=== PATIENT | female | born 1935 | race Caucasian/White ===

== ENCOUNTER 2019-05-08 19:35 | Inpatient (IN) | payer MEDICARE, OTHER ==
[~2019-05-08] VITALS: Ht 167.6 cm; Wt 69.0 kg
[2019-05-08] MEDS ORDERED: MAPAP500 MG/15 PO (19:45)
[2019-05-08 20:07] LABS: BASOPHILS % (AUTO) 0.9 % (0.0-2.0); HEMATOCRIT 41.2 % (37.0-47.0); HEMOGLOBIN 13.9 G/DL (12.0-16.0); LYMPHOCYTES % (AUTO) 24.6 % (20.0-45.0); MEAN CORPUSCULAR VOLUME 86 FL (80-99); MONOCYTES % (AUTO) 9.9 % (1.0-10.0); NEUTROPHILS % (AUTO) 63.6 % (45.0-75.0); PLATELET COUNT 263 K/UL (150-450); RED BLOOD COUNT 4.81 M/UL (4.20-5.40); RED CELL DISTRIBUTION WIDTH 11.5 % (11.6-14.8); WHITE BLOOD COUNT 9.4 K/UL (4.8-10.8)
--- NOTE | 2019-05-08 20:09 | Emergency Room Report ---
History of Present Illness General Chief Complaint: Generalized Weakness Source: Patient Present Illness HPI Patient presents by paramedics escorted with son who reports the patient appears to have been weaker than usual over the past 1 to 2 days she is usually more Energetic and has more energy to ambulate Patient herself denies any headache denies any chest pain denies any vomiting or diarrhea denies any focal weakness denies any abdominal pain Son denies any change in medication was recently Denies any other obvious acute change in mental status or focality regarding the weakness Allergies: Coded Allergies: No Known Allergies (Unverified , 05/08/19) Patient History Past Medical History: see triage record Pertinent Family History: none Last Menstrual Period: n/a Reviewed Nursing Documentation: PMH: Agreed; PSxH: Agreed Nursing Documentation-PMH Past Medical History: No History, Except For Hx Hypertension: Yes Review of Systems All Other Systems: negative except mentioned in HPI Physical Exam Vital Signs Date Time Temp Pulse Resp B/P (MAP) Pulse Ox O2 Delivery O2 Flow Rate FiO2 05/08/19 19:31 98.8 71 18 132/62 (85) 92 Room Air Sp02 EP Interpretation: reviewed, normal General Appearance: well appearing, no apparent distress Head: normocephalic, atraumatic Eyes: bilateral eye PERRL, bilateral eye EOMI ENT: hearing grossly normal, normal pharynx, TMs + canals normal, uvula midline Neck: full range of motion, supple, no meningismus, no bony tend Respiratory: lungs clear, normal breath sounds, no rhonchi, no respiratory distress, no retraction, no accessory muscle use Cardiovascular #1: normal peripheral pulses, regular rate, rhythm, no gallop, no JVD, no murmur Gastrointestinal: normal bowel sounds, non tender, soft, no mass, no organomegaly, non-distended, no guarding, no hernia, no pulsatile mass, no rebound Genitourinary: no CVA tenderness Musculoskeletal: normal inspection Neurologic: oriented x3, responsive, 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, motor strength/ tone normal, sensory intact Psychiatric: mood/affect normal Skin: palpation normal, other - Edema bilaterally Lymphatic: normal inspection, no adenopathy Medical Decision Making Diagnostic Impression: Primary Impression: UTI (urinary tract infection) Additional Impression: Sepsis ER Course Multiple differentials and consideration patient has complex requiring extensive blood work and imaging urine sample does show evidence of Infectious pathology Patient requiring further hydration IV antibiotics and requires further inpatient care Labs Test 05/08/19 19:45 05/08/19 20:15 White Blood Count 9.4 K/UL (4.8-10.8) Red Blood Count 4.81 M/UL (4.20-5.40) Hemoglobin 13.9 G/DL (12.0-16.0) Hematocrit 41.2 % (37.0-47.0) Mean Corpuscular Volume 86 FL (80-99) Mean Corpuscular Hemoglobin 28.8 PG (27.0-31.0) Mean Corpuscular Hemoglobin Concent 33.6 G/DL (32.0-36.0) Red Cell Distribution Width 11.5 % (11.6-14.8) Platelet Count 263 K/UL (150-450) Mean Platelet Volume 5.6 FL (6.5-10.1) Neutrophils (%) (Auto) 63.6 % (45.0-75.0) Lymphocytes (%) (Auto) 24.6 % (20.0-45.0) Monocytes (%) (Auto) 9.9 % (1.0-10.0) Eosinophils (%) (Auto) 1.0 % (0.0-3.0) Basophils (%) (Auto) 0.9 % (0.0-2.0) Sodium Level 142 MMOL/L (136-145) Potassium Level 3.7 MMOL/L (3.5-5.1) Chloride Level 106 MMOL/L (98-107) Carbon Dioxide Level 29 MMOL/L (21-32) Anion Gap 7 mmol/L (5-15) Blood Urea Nitrogen 30 mg/dL (7-18) Creatinine 1.4 MG/DL (0.55-1.30) Estimat Glomerular Filtration Rate mL/min (>60) Glucose Level 128 MG/DL (74-106) Lactic Acid Level 1.20 mmol/L (0.4-2.0) Calcium Level 9.4 MG/DL (8.5-10.1) Total Bilirubin 0.6 MG/DL (0.2-1.0) Aspartate Amino Transf (AST/SGOT) 42 U/L (15-37) Alanine Aminotransferase (ALT/SGPT) 26 U/L (12-78) Alkaline Phosphatase 78 U/L (46-116) Total Creatine Kinase 950 U/L (26-308) Creatine Kinase MB 13.0 NG/ML (0.0-3.6) Creatine Kinase MB Relative Index 1.3 Troponin I 0.000 ng/mL (0.000-0.056) Pro-B-Type Natriuretic Peptide 257 pg/mL (0-125) Total Protein 7.3 G/DL (6.4-8.2) Albumin 4.1 G/DL (3.4-5.0) Globulin 3.2 g/dL Albumin/Globulin Ratio 1.3 (1.0-2.7) Lipase 134 U/L (73-393) Urine Color Yellow Urine Appearance Clear Urine pH 5 (4.5-8.0) Urine Specific [place] 1.020 (1.005-1.035) Urine Protein Negative (NEGATIVE) Urine Glucose (UA) Negative (NEGATIVE) Urine Ketones Negative (NEGATIVE) Urine Blood 2+ (NEGATIVE) Urine Nitrite Positive (NEGATIVE) Urine Bilirubin Negative (NEGATIVE) Urine Urobilinogen Normal MG/DL (0.0-1.0) Urine Leukocyte Esterase 1+ (NEGATIVE) Urine RBC 0-2 /HPF (0 - 2) Urine WBC 2-4 /HPF (0 - 2) Urine Squamous Epithelial Cells None /LPF (NONE/OCC) Urine Bacteria Moderate /HPF (NONE) Rhythm Strip Diag. Results EP Interpretation: yes Rate: 77 Rhythm: NSR, no PVC's, no ectopy Chest X-Ray Diagnostic Results Chest X-Ray Diagnostic Results : Chest X-Ray Ordered: Yes # of Views/Limited/Complete: 1 View Indication: Chest Pain EP Interpretation: Yes Interpretation: no consolidation, no effusion, no pneumothorax Impression: No acute disease Electronically Signed by: Dashawn Castillo DO Last Vital Signs Date Time Temp Pulse Resp B/P (MAP) Pulse Ox O2 Delivery O2 Flow Rate FiO2 05/08/19 19:31 98.8 71 18 132/62 (85) 92 Room Air Status: improved Disposition: ADMITTED INPATIENT Condition: Serious Scripts Ciprofloxacin (CIPRO) 500 Mg/5 Ml Mikayla.mc.rec 500 MG PO BID for 7 Days, #14 CAP Prov: Beatriz Cruz MD 05/11/19 Amlodipine Besylate (Norvasc) 2.5 Mg Tablet 2.5 MG ORAL DAILY, #30 TAB Prov: Beatriz Cruz MD 05/11/19 Dashawn Castillo DO May 08, 2019 20:09
--- NOTE | 2019-05-08 20:10 | NUR ---
ED Nurse Note: RECIEVED PT BIBA FROM [facility] WITH C/O WEAKNESS X 2 DAYS, PT IS AWAKE, ALRT AND ORIENTED, PT DENIES PAIN, LYING QUIETLY IN BED, NO SOB OR LABORED BREATHING, PT GOWNED AND ASSISTED TO MONITORING, WILL RESUME CARE ORDERED AND CLOSELY MONITOR.
[2019-05-08 20:24] LABS: ANION GAP 7 mmol/L (5-15); BLOOD UREA NITROGEN 30 mg/dL (7-18); CALCIUM 9.4 MG/DL (8.5-10.1); CARBON DIOXIDE 29 MMOL/L (21-32); CHLORIDE 106 MMOL/L (98-107); CREATININE 1.4 MG/DL (0.55-1.30); POTASSIUM 3.7 MMOL/L (3.5-5.1); SODIUM 142 MMOL/L (136-145)
[2019-05-08 20:29] LABS: APPEARANCE,URINE CLEAR; BILIRUBIN, URINE NEGATIVE (NEGATIVE); GLUCOSE, URINE (UA) NEGATIVE (NEGATIVE); KETONES,URINE NEGATIVE (NEGATIVE); LEUKOCYTE ESTERASE ,URINE 1+ (NEGATIVE); NITRITE,URINE POSITIVE (NEGATIVE); PH,URINE 5 (4.5-8.0); PROTEIN,URINE NEGATIVE (NEGATIVE); UROBILINOGEN,URINE NORMAL MG/DL (0.0-1.0)
[2019-05-08 20:34] LABS: COLOR,URINE YELLOW
[2019-05-08 20:37] LABS: ALANINE AMINOTRANSFERASE 26 U/L (12-78); ALBUMIN 4.1 G/DL (3.4-5.0); ALBUMIN/GLOBULIN RATIO 1.3 (1.0-2.7); ALKALINE PHOSPHATASE 78 U/L (46-116); ASPARTATE AMINO TRANSFERASE 42 U/L (15-37); BILIRUBIN,TOTAL 0.6 MG/DL (0.2-1.0); CREATINE KINASE 950 U/L (26-308)
[2019-05-08 20:45] VITALS: BP 150/52
[2019-05-08] MEDS ORDERED: cefTRIAXone 1 GM in NS 55 ML IVPB ONE (21:00)
--- NOTE | 2019-05-08 21:50 | NUR ---
ED Nurse Note: PT CONTINUES TO REST QUIETLY IN BED, AWAKE AND ALERT, COMPLETED IV ANTIBIOTICS, TOLERATED WELL, NO S/S OF ADVERSE REACTION NOTED, SITE INTACT, PT DENIES PAIN, PT IS BEING ADMITTED TO HOSPITAL, REPORT CALLED TO MATEO BARBOUR ON UNIT, PT BELONGINGS WITH HER AND LIST COMPLETED, PT BEING TAKEN TO FLOOR UNIT VIA GURNEY AND ER-TECH, NAD NOTED DURING PT TRANSPORT.
--- NOTE | 2019-05-08 23:00 | NUR ---
NURSE NOTES: RECEIVED REPORT FROM MATEO RUANO. PT WAS TRANSFERRED TO THE UNIT BY YASMEEN. PT IS AWAKE, AAOX4. ON ROOM AIR, VSS. NO ACUTE DISTRESS NOTED. ORIENTED PT TO ROOM. IV ON LEFT AC 20G IS INTACT AND PATENT. RECEIVED ADMISSION ORDERS FROM DR. TY. BED IS LOCKED AT THE LOWEST POSITION, BED ALARMS ACTIVE, SIDE RAILS UP X2 AND CALL LIGHT IS WITHIN REACH. WILL CONTINUE TO MONITOR.
[2019-05-08 23:10] VITALS: BP 140/97
[2019-05-08] MEDS ORDERED: Acetaminophen 650mg/20.3ml ORAL PRN (23:30)
[2019-05-08] MEDS: Donepezil 5mg Tab ORAL SCH (23:45)
[2019-05-09] VITALS: BP 137/93
[2019-05-09 04:00] VITALS: BP 120/86
[2019-05-09 07:00] LABS: BASOPHILS % (AUTO) 0.8 % (0.0-2.0); EOSINOPHILS % (AUTO) 1.6 % (0.0-3.0); HEMATOCRIT 40.5 % (37.0-47.0); HEMOGLOBIN 13.6 G/DL (12.0-16.0); LYMPHOCYTES % (AUTO) 30.9 % (20.0-45.0); MEAN CORPUSCULAR VOLUME 88 FL (80-99); MONOCYTES % (AUTO) 8.8 % (1.0-10.0); PLATELET COUNT 210 K/UL (150-450); RED CELL DISTRIBUTION WIDTH 11.5 % (11.6-14.8); WHITE BLOOD COUNT 5.8 K/UL (4.8-10.8)
[2019-05-09 07:20] LABS: ANION GAP 7 mmol/L (5-15); BLOOD UREA NITROGEN 25 mg/dL (7-18); CALCIUM 8.8 MG/DL (8.5-10.1); CARBON DIOXIDE 26 MMOL/L (21-32); CHLORIDE 113 MMOL/L (98-107); POTASSIUM 3.7 MMOL/L (3.5-5.1); SODIUM 146 MMOL/L (136-145)
--- NOTE | 2019-05-09 07:50 | NUR ---
HAND-OFF: Report given to MATEO KO.
[2019-05-09 08:00] VITALS: BP_SYST 145; BP_SYST 171; BP_DIAS 77
--- NOTE | 2019-05-09 08:13 | NUR ---
NURSE NOTES: Patient awake, confused, trying getting out of bed. Patient pulled the IV line and name tag out. bed at lowest position, side rails up x2, breaks engaged, bed alarm on, sign at the room marked fall precaution, yellow tag and gown changed, nursing technician is wilkins that patient is fall percussion. will keep monitoring.
--- NOTE | 2019-05-09 09:02 | General Progress Note ---
Assessment/Plan Status: stable Assessment/Plan: 1. UTI - cont rocephin 1 gm IV daily. follow urine and blood cx's. 2. Questionable Sepsis - follow up urine cx. 3. Dementia - cont Aricept 5 mg one po daily. 4. Dehydration - improved with IVF. Subjective Date patient seen: May 09, 2019 Time patient seen: 08:40 Constitutional: Reports: weakness HEENT: Reports: no symptoms Cardiovascular: Reports: no symptoms Respiratory: Reports: no symptoms Gastrointestinal/Abdominal: Reports: no symptoms Genitourinary: Reports: no symptoms Neurologic/Psychiatric: Reports: no symptoms Endocrine: Reports: no symptoms Hematologic/Lymphatic: Reports: no symptoms Allergies: Coded Allergies: No Known Allergies (Unverified , 05/08/19) Subjective This morning she feels better. no sob or chest pain. no fever or chills. No nausea or vomiting. Objective Last 24 Hour Vital Signs Date Time Temp Pulse Resp B/P (MAP) Pulse Ox O2 Delivery O2 Flow Rate FiO2 05/09/19 04:00 98.4 71 17 120/86 (97) 96 05/09/19 00:00 97.7 82 17 137/93 (108) 96 05/08/19 23:10 97.8 87 18 140/97 (111) 96 05/08/19 23:07 Room Air 05/08/19 22:00 98.8 72 18 150/52 100 Room Air 05/08/19 20:45 98.8 72 18 150/52 100 Room Air 05/08/19 20:10 71 18 Room Air 05/08/19 19:31 98.8 71 18 132/62 (85) 92 Room Air Intake and Output 05/08/19 05/09/19 19:00 07:00 Intake Total 240 ml Output Total 400 ml Balance -160 ml Intake Oral 240 ml Output Urine Total 400 ml # Voids 3 # Bowel Movements 2 Laboratory Tests 05/08/19 19:45: White Blood Count 9.4, Red Blood Count 4.81, Hemoglobin 13.9, Hematocrit 41.2, Mean Corpuscular Volume 86, Mean Corpuscular Hemoglobin 28.8, Mean Corpuscular Hemoglobin Concent 33.6, Red Cell Distribution Width 11.5L, Platelet Count 263, Mean Platelet Volume 5.6L, Neutrophils (%) (Auto) 63.6, Lymphocytes (%) (Auto) 24.6, Monocytes (%) (Auto) 9.9, Eosinophils (%) (Auto) 1.0, Basophils (%) (Auto ) 0.9, Sodium Level 142, Potassium Level 3.7, Chloride Level 106, Carbon Dioxide Level 29, Anion Gap 7, Blood Urea Nitrogen 30H, Creatinine 1.4H, Estimat Glomerular Filtration Rate , Glucose Level 128H, Lactic Acid Level 1.20 , Calcium Level 9.4, Total Bilirubin 0.6, Aspartate Amino Transf (AST/SGOT) 42H , Alanine Aminotransferase (ALT/SGPT) 26, Alkaline Phosphatase 78, Total Creatine Kinase 950H, Creatine Kinase MB 13.0H, Creatine Kinase MB Relative Index 1.3, Troponin I 0.000, Pro-B-Type Natriuretic Peptide 257H, Total Protein 7.3, Albumin 4.1, Globulin 3.2, Albumin/Globulin Ratio 1.3, Lipase 134 05/08/19 20:15: Urine Color Yellow, Urine Appearance Clear, Urine pH 5, Urine Specific [place] 1.020, Urine Protein Negative, Urine Glucose (UA) Negative, Urine Ketones Negative, Urine Blood 2+H, Urine Nitrite PositiveH, Urine Bilirubin Negative, Urine Urobilinogen Normal, Urine Leukocyte Esterase 1+H, Urine RBC 0-2, Urine WBC 2-4, Urine Squamous Epithelial Cells None, Urine Bacteria ModerateH 05/09/19 05:50: White Blood Count 5.8, Red Blood Count 4.60, Hemoglobin 13.6, Hematocrit 40.5, Mean Corpuscular Volume 88, Mean Corpuscular Hemoglobin 29.5, Mean Corpuscular Hemoglobin Concent 33.6, Red Cell Distribution Width 11.5L, Platelet Count 210, Mean Platelet Volume 6.6, Neutrophils (%) (Auto) 58.0, Lymphocytes (%) (Auto) 30.9, Monocytes (%) (Auto) 8.8, Eosinophils (%) (Auto) 1.6, Basophils (%) (Auto ) 0.8, Sodium Level 146H, Potassium Level 3.7, Chloride Level 113H, Carbon Dioxide Level 26, Anion Gap 7, Blood Urea Nitrogen 25H, Creatinine 1.0, Estimat Glomerular Filtration Rate , Glucose Level 99, Calcium Level 8.8 Height (Feet): 5 Height (Inches): 6.00 Weight (Pounds): 152 General Appearance: no apparent distress, alert EENT: normal ENT inspection Neck: non-tender, normal alignment, supple Cardiovascular: normal peripheral pulses, normal rate, regular rhythm Respiratory/Chest: chest wall non-tender, lungs clear, normal breath sounds Abdomen: normal bowel sounds, non tender, soft Extremities: normal range of motion, non-tender Edema: no edema noted Arm (L), no edema noted Arm (R), no edema noted Leg (L), no edema noted Leg (R), no edema noted Pedal (L), no edema noted Pedal (R), no edema noted Generalized Neurologic: alert, oriented x 3, responsive Skin: warm/dry Lymphatic: normal anterior cervical (L), normal anterior cervical (R), normal posterior cervical (L), normal posterior cervical (R), normal submandibular (L) , normal submandibular (R), normal supraclavicular (L), normal supraclavicular ( R), normal axillary (L), normal axillary (R), normal inguinal (L), normal inguinal (R), normal other Beatriz Cruz MD May 09, 2019 09:02
[2019-05-09] MEDS: Heparin 5000 units/ml inj SUBQ SCH ×2 (09:14→20:59)
--- NOTE | 2019-05-09 10:12 | NUR ---
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 DEHYDRATION . UTI VS: BP 150/52, P 71, T 98.8, RR 18, SpO2 92 BUN 30, CR 1.4, AST 42 IS:NS 500ml IV CEFTRIAXONE 55ml IVPB ADMITTED TO MED/SURG DCP: RETURN TO [facility]
[2019-05-09 12:00] VITALS: BP 131/72
--- NOTE | 2019-05-09 14:30 | Diagnostic Imaging Report ---
Indication: Chest pain Technique: One view of the chest Comparison: none Findings: Lungs and pleural spaces are clear. Heart size is upper limits normal. The aorta is tortuous and calcified Impression: No acute process
--- NOTE | 2019-05-09 15:24 | Cardiology Report ---
APPROVED REPORT EKG Measurement Heart [id number] Normal sinus rhythm with sinus arrhythmia Possible Left atrial enlargement Septal infarct, age undetermined Abnormal ECG
--- NOTE | 2019-05-09 15:45 | History and Physical Report ---
DATE OF ADMISSION: 05/08/2019 CHIEF COMPLAINT: Aggitation x 2-3 days HISTORY OF PRESENT ILLNESS: This is an 83-year-old female who came in for a complaint of being weak for the past few days prior to admission. The patient lives in the assisted living [facility] and per discussion with the nursing staff at the [facility], she has been slightly more agitated in the past few days. The patient was brought in for evaluation in the emergency room. She has history of dementia and is taking Aricept 5 mg daily. PAST MEDICAL HISTORY: Includes history of Alzheimer dementia PAST SURGICAL HISTORY: None. FAMILY HISTORY: Noncontributory. ALLERGIES: No known drug allergies. SOCIAL HISTORY: The patient lives in [facility]. No history of smoking. No alcohol use. REVIEW OF SYSTEMS: Negative except for HPI. PHYSICAL EXAMINATION: VITAL SIGNS: Temperature 98.8, pulse 71, respirations 18, blood pressure 132/62, pulse ox 92% on room air. GENERAL APPEARANCE: Alert, oriented x3, and in no acute distress. HEENT: Normocephalic, normochromic. Extraocular muscles intact. Throat is clear. NECK: Supple. No lymphadenopathy CARDIOVASCULAR: Regular rate and rhythm. No murmur. No gallop. LUNGS: Clear to auscultation bilaterally. ABDOMEN: Soft, nontender, and nondistended. Positive bowel sounds. EXTREMITIES: No edema, cyanosis, or clubbing. GENITOURINARY: No CVA tenderness. No suprapubic tenderness. NEUROLOGIC: Alert, oriented x3. Responsive. Cranial nerves II to XII intact. SKIN: No rash. LABORATORY AND DIAGNOSTIC DATA: Include a UA showing nitrite positive, +2 urine blood, +1 leukocyte esterase, moderate bacteria, and no epithelial cells. Sodium 142, potassium 3.7, chloride 106, carbon dioxide 29, BUN 30, creatinine 1.4, glucose 128. AST 42, ALT 26. Total creatine kinase is 950. Troponin 0, BNP 257. Albumin 4.1. Lipase 134. Lactic acid 1.2. WBC 9.4, hemoglobin 13.9, hematocrit 41.2, platelet count 263,000. EKG showed normal sinus rhythm with slight sinus arrhythmia. IMPRESSION: 1. Urinary tract infection. We will start the patient on Rocephin and follow urine cultures. 2. Agitation, probably secondary to urinary tract infection that has resolved in the emergency room. 3. Dementia. We will restart the patient on Aricept 5 mg daily. The patient will be admitted for minimum of 2-night stay for IV antibiotics for urinary tract infection. Beatriz Cruz M.D. DR: NICOLÁS JOB#: [id number] CC: KENIA
[2019-05-09 16:00] VITALS: BP 144/80
--- NOTE | 2019-05-09 19:42 | NUR ---
HAND-OFF: Report given to Jaycob/Merlyn/RN.
--- NOTE | 2019-05-09 19:45 | NUR ---
NURSE NOTES: Received patient laying on the bed comfortably. Patient is awake, alert, but confused. Patient's bed is placed at lowest position, side rails up x2, breaks engaged, bed alarm on, sign at the room marked fall precaution, yellow tag and yellow gown on. Patient breathing unlabored and evenly. No discomfort, distress, or signs of pain noted at the time of handoff. Will continue to monitor. Addendum: 05/09/19 at 1954 by Fercho Zuleta RN NURSE NOTES: Received patient laying on the bed comfortably. Patient is awake, alert, but confused. Patient's bed is placed at lowest position, side rails up x2, breaks engaged, bed alarm on, sign at the room marked fall precaution, yellow tag and yellow gown on. Patient breathing unlabored and evenly. No discomfort, distress, or signs of pain noted at the time of handoff. Will continue to monitor. Call light placed within reach for any assistance needed.
[2019-05-09 20:00] VITALS: BP 149/70
[2019-05-09] MEDS: cefTRIAXone 1 GM in D5W 55 ML IVPB SCH (20:58)
[2019-05-09] MEDS: Donepezil 5mg Tab ORAL SCH (20:59)
[2019-05-10] VITALS: BP 149/79
[2019-05-10 04:00] VITALS: BP 138/74
[2019-05-10 06:15] LABS: BASOPHILS % (AUTO) 0.9 % (0.0-2.0); EOSINOPHILS % (AUTO) 2.8 % (0.0-3.0); HEMATOCRIT 39.9 % (37.0-47.0); HEMOGLOBIN 13.4 G/DL (12.0-16.0); LYMPHOCYTES % (AUTO) 30.9 % (20.0-45.0); MEAN CORPUSCULAR VOLUME 88 FL (80-99); MONOCYTES % (AUTO) 7.7 % (1.0-10.0); NEUTROPHILS % (AUTO) 57.7 % (45.0-75.0); PLATELET COUNT 215 K/UL (150-450); RED BLOOD COUNT 4.54 M/UL (4.20-5.40); RED CELL DISTRIBUTION WIDTH 11.3 % (11.6-14.8); WHITE BLOOD COUNT 6.1 K/UL (4.8-10.8)
[2019-05-10 06:25] LABS: ANION GAP 8 mmol/L (5-15); BLOOD UREA NITROGEN 22 mg/dL (7-18); CALCIUM 8.5 MG/DL (8.5-10.1); CARBON DIOXIDE 26 MMOL/L (21-32); CHLORIDE 110 MMOL/L (98-107); POTASSIUM 3.6 MMOL/L (3.5-5.1); SODIUM 144 MMOL/L (136-145)
--- NOTE | 2019-05-10 07:16 | NUR ---
HAND-OFF: Report given to MATEO Saha.
--- NOTE | 2019-05-10 07:33 | NUR ---
NURSE NOTES: Patient is awake, eating breakfast; on room air, no sign of distress and shortness of breath; commode at the bed side; No IV access, will try to get an IV access on her; bed at lowest position, side rails up, breaks engaged, bed alarm on; will keep monitoring.
[2019-05-10 08:00] VITALS: BP 150/91
[2019-05-10] MEDS: Heparin 5000 units/ml inj SUBQ SCH ×2 (08:50→20:31)
--- NOTE | 2019-05-10 08:58 | General Progress Note ---
Assessment/Plan Status: stable Assessment/Plan: 1. UTI - cont rocephin 1 gm IV daily. follow urine and blood cx's. 2. Questionable Sepsis - follow up blood cx's. 3. Dementia - increase Aricept 10 mg one po daily. 4. HTN - start norvasc 2.5 mg one po daily. Subjective Date patient seen: May 10, 2019 Time patient seen: 08:30 Constitutional: Reports: no symptoms HEENT: Reports: no symptoms Cardiovascular: Reports: no symptoms Respiratory: Reports: no symptoms Gastrointestinal/Abdominal: Reports: no symptoms Genitourinary: Reports: no symptoms Neurologic/Psychiatric: Reports: no symptoms Endocrine: Reports: no symptoms Hematologic/Lymphatic: Reports: no symptoms Allergies: Coded Allergies: No Known Allergies (Unverified , 05/08/19) Subjective she is doing better. no sob or chest pain. no fever or chills. No nausea or vomiting. patient is very calm and not aggitated but he blood pressure is trending high. Her dementia is also has worsened in the past few months. Objective Last 24 Hour Vital Signs Date Time Temp Pulse Resp B/P (MAP) Pulse Ox O2 Delivery O2 Flow Rate FiO2 05/10/19 08:00 97.7 72 20 150/91 (110) 100 05/10/19 04:00 97.9 67 20 138/74 (95) 95 05/10/19 00:00 97.7 77 20 149/79 (102) 94 05/09/19 21:00 Room Air 05/09/19 20:00 98.2 79 20 149/70 (96) 94 05/09/19 16:00 98.2 67 20 144/80 (101) 97 05/09/19 12:00 97.5 70 18 131/72 (91) 95 05/09/19 09:00 Room Air Intake and Output 05/09/19 05/10/19 19:00 07:00 Intake Total 480 ml 55 ml Output Total 600 ml 1 ml Balance -120 ml 54 ml Intake Oral 480 ml IV Total 55 ml Output Urine Total 600 ml Stool Total 1 ml # Voids 1 # Bowel Movements 2 Laboratory Tests 05/10/19 05:40: White Blood Count 6.1, Red Blood Count 4.54, Hemoglobin 13.4, Hematocrit 39.9, Mean Corpuscular Volume 88, Mean Corpuscular Hemoglobin 29.5, Mean Corpuscular Hemoglobin Concent 33.5, Red Cell Distribution Width 11.3L, Platelet Count 215, Mean Platelet Volume 6.3L, Neutrophils (%) (Auto) 57.7, Lymphocytes (%) (Auto) 30.9, Monocytes (%) (Auto) 7.7, Eosinophils (%) (Auto) 2.8, Basophils (%) (Auto ) 0.9, Sodium Level 144, Potassium Level 3.6, Chloride Level 110H, Carbon Dioxide Level 26, Anion Gap 8, Blood Urea Nitrogen 22H, Creatinine 1.0, Estimat Glomerular Filtration Rate , Glucose Level 95, Calcium Level 8.5 Height (Feet): 5 Height (Inches): 6.00 Weight (Pounds): 152 General Appearance: no apparent distress, alert EENT: normal ENT inspection Neck: non-tender, normal alignment, supple Cardiovascular: normal peripheral pulses, normal rate, regular rhythm Respiratory/Chest: lungs clear, normal breath sounds Abdomen: normal bowel sounds, non tender, soft Extremities: normal range of motion, non-tender Edema: no edema noted Arm (L), no edema noted Arm (R), no edema noted Leg (L), no edema noted Leg (R), no edema noted Pedal (L), no edema noted Pedal (R), no edema noted Generalized Neurologic: alert, responsive Skin: warm/dry Lymphatic: normal anterior cervical (L), normal anterior cervical (R), normal posterior cervical (L), normal posterior cervical (R), normal submandibular (L) , normal submandibular (R), normal supraclavicular (L), normal supraclavicular ( R), normal axillary (L), normal axillary (R), normal inguinal (L), normal inguinal (R), normal other Beatriz Cruz MD May 10, 2019 08:58
[2019-05-10 12:00] VITALS: BP 123/71
[2019-05-10 16:00] VITALS: BP 112/75
--- NOTE | 2019-05-10 19:38 | NUR ---
HAND-OFF: Report given to Jaycob/Merlyn/RN.
--- NOTE | 2019-05-10 19:45 | NUR ---
NURSE NOTES: Received patient sitting on the bed. Patient is confused about where she is and likes to wander around the unit. Family member is aware of the patient's condition. Patient is breathing unlabored and evenly without signs of distress and SOB. New 22 G IV site is noted on the left hand, saline locked. IV dressing is intact, dry, and clean. Skin is warm to touch and dry. Patient prefers to put her own clothing on with shoes. Patient's bed placed at the lowest level with HOB slightly elevated, brakes on, and bed alarm on. Call light placed within reach. Will monitor frequently.
[2019-05-10 20:00] VITALS: BP 117/67
[2019-05-10] MEDS: cefTRIAXone 1 GM in D5W 55 ML IVPB SCH (20:15)
[2019-05-10] MEDS ORDERED: Donepezil 10mg tab ORAL SCH (21:00)
[2019-05-11] VITALS: BP 150/79
[2019-05-11 04:00] VITALS: BP 149/80
[2019-05-11 06:20] LABS: BASOPHILS % (AUTO) 0.9 % (0.0-2.0); EOSINOPHILS % (AUTO) 3.3 % (0.0-3.0); HEMATOCRIT 39.9 % (37.0-47.0); HEMOGLOBIN 13.5 G/DL (12.0-16.0); LYMPHOCYTES % (AUTO) 35.2 % (20.0-45.0); MEAN CORPUSCULAR VOLUME 88 FL (80-99); MONOCYTES % (AUTO) 8.7 % (1.0-10.0); NEUTROPHILS % (AUTO) 51.9 % (45.0-75.0); PLATELET COUNT 206 K/UL (150-450); RED BLOOD COUNT 4.54 M/UL (4.20-5.40); RED CELL DISTRIBUTION WIDTH 11.4 % (11.6-14.8); WHITE BLOOD COUNT 5.8 K/UL (4.8-10.8)
--- NOTE | 2019-05-11 06:45 | NUR ---
NURSE NOTES: NURSE NOTES: Patient removed IV site. Charge nurse made aware. Will endorse to next shift.
[2019-05-11 07:04] LABS: ANION GAP 8 mmol/L (5-15); BLOOD UREA NITROGEN 23 mg/dL (7-18); CALCIUM 9.1 MG/DL (8.5-10.1); CARBON DIOXIDE 26 MMOL/L (21-32); CHLORIDE 109 MMOL/L (98-107); CREATININE 1.2 MG/DL (0.55-1.30); POTASSIUM 3.7 MMOL/L (3.5-5.1); SODIUM 143 MMOL/L (136-145)
--- NOTE | 2019-05-11 07:33 | NUR ---
HAND-OFF: Report given to MATEO Banks.
--- NOTE | 2019-05-11 07:45 | NUR ---
NURSE NOTES: Patient is awake and alert,respirations unlabored.Patient sitting up and eating breakfast.No complaints at this time.Call light within reach.
[2019-05-11 08:00] VITALS: BP 136/84
--- NOTE | 2019-05-11 08:55 | NUR ---
PT EVALUATION NOTE Patient seen for initial evaluation. Patient demonstrates all functional mobility on independent/supervised level. Skilled inpatient PT intervention not warranted, patient discharged from PT. Jocelyn GALINDO notified of patient's status and that patient is cleared to ambulate in hallway with nursing supervision. Addendum: 05/11/19 at 1106 by CHANDA NAVA PT Amended: Links added.
[2019-05-11] MEDS: Heparin 5000 units/ml inj SUBQ SCH (09:51)
--- NOTE | 2019-05-11 11:26 | NUR ---
MACHINERY RIGGERGENERAL EDUCATION INSTRUCTOR SI:HTN . UTI VS: BP 150/79, P 55, T 97.2, RR 20, SpO2 96 CHLORIDE 109, BUN 23, GLUCOSE 108 IS:ARICEPT 10mg NORVASC 2.5mg CEFTRIAXONE 55ml IVPB HEPARIN SUBQ MED/SURG STATUS
[2019-05-11 12:00] VITALS: BP 137/77
[2019-05-11 16:00] VITALS: BP 134/69
[2019-05-11] MEDS ORDERED: CIPRO500 MG/51 PO (16:04)
[2019-05-11] MEDS ORDERED: NORVASC2.5 MG ORAL (16:04)
--- NOTE | 2019-05-11 16:13 | General Progress Note ---
Assessment/Plan Status: stable Assessment/Plan: 1. UTI - Will D/C home with cipro 500 mg one po bid x 7 days. D/C back to [facility]. 2. Questionable Sepsis - Blood cx negative. 3. Dementia - cont Aricept 10 mg one po daily. 4. HTN - controlled. cont norvasc 2.5 mg one po daily. 5. MRSA colonization of nares. Subjective Date patient seen: May 11, 2019 Time patient seen: 16:00 Constitutional: Reports: no symptoms HEENT: Reports: no symptoms Cardiovascular: Reports: no symptoms Respiratory: Reports: no symptoms Gastrointestinal/Abdominal: Reports: no symptoms Genitourinary: Reports: no symptoms Neurologic/Psychiatric: Reports: no symptoms Endocrine: Reports: no symptoms Hematologic/Lymphatic: Reports: no symptoms Allergies: Coded Allergies: No Known Allergies (Unverified , 05/08/19) Subjective she is doing better. no sob or chest pain. no fever or chills. No nausea or vomiting. Objective Last 24 Hour Vital Signs Date Time Temp Pulse Resp B/P (MAP) Pulse Ox O2 Delivery O2 Flow Rate FiO2 05/11/19 12:00 97.6 63 137/77 (97) 96 05/11/19 10:06 Room Air 05/11/19 09:49 71 134/66 05/11/19 08:00 97.2 68 17 136/84 (101) 96 05/11/19 04:00 98.3 55 20 149/80 (103) 96 05/11/19 00:00 98.0 79 20 150/79 (102) 97 05/10/19 21:00 Room Air 05/10/19 20:00 98.4 74 18 117/67 (84) 95 Intake and Output 05/10/19 05/11/19 19:00 07:00 Intake Total 413 ml Output Total 2 ml Balance 411 ml Intake Oral 358 ml IV Total 55 ml Output Urine Total 2 ml Stool Total 0 ml # Voids 4 Laboratory Tests 05/11/19 05:30: White Blood Count 5.8, Red Blood Count 4.54, Hemoglobin 13.5, Hematocrit 39.9, Mean Corpuscular Volume 88, Mean Corpuscular Hemoglobin 29.8, Mean Corpuscular Hemoglobin Concent 34.0, Red Cell Distribution Width 11.4L, Platelet Count 206, Mean Platelet Volume 6.2L, Neutrophils (%) (Auto) 51.9, Lymphocytes (%) (Auto) 35.2, Monocytes (%) (Auto) 8.7, Eosinophils (%) (Auto) 3.3H, Basophils (%) (Auto ) 0.9, Sodium Level 143, Potassium Level 3.7, Chloride Level 109H, Carbon Dioxide Level 26, Anion Gap 8, Blood Urea Nitrogen 23H, Creatinine 1.2, Estimat Glomerular Filtration Rate , Glucose Level 108H, Calcium Level 9.1 Height (Feet): 5 Height (Inches): 6.00 Weight (Pounds): 152 General Appearance: no apparent distress, alert EENT: normal ENT inspection Neck: non-tender, normal alignment, supple Cardiovascular: normal peripheral pulses, normal rate, regular rhythm Respiratory/Chest: chest wall non-tender, lungs clear, normal breath sounds Abdomen: non tender, soft Extremities: normal range of motion, non-tender Edema: no edema noted Arm (L), no edema noted Arm (R), no edema noted Leg (L), no edema noted Leg (R), no edema noted Pedal (L), no edema noted Pedal (R), no edema noted Generalized Neurologic: alert, oriented x 3, responsive Skin: warm/dry Lymphatic: normal anterior cervical (L), normal anterior cervical (R), normal posterior cervical (L), normal posterior cervical (R), normal submandibular (L) , normal submandibular (R), normal supraclavicular (L), normal supraclavicular ( R), normal axillary (L), normal axillary (R), normal inguinal (L), normal inguinal (R), normal other Beatriz Cruz MD May 11, 2019 16:13
--- NOTE | 2019-05-11 17:00 | NUR ---
NURSE NOTES: [facility] aware that patient will be coming back to facility.Patient son Cornelio is also aware and agree with discharge.Patient.Patient ambulating throughout the day,gait is steady.No complaints at this time.
--- NOTE | 2019-05-11 19:45 | NUR ---
HAND-OFF: Report given to Stas GALINDO.
[2019-05-11 20:00] VITALS: BP 122/76
[2019-05-11] MEDS: cefTRIAXone 1 GM in D5W 55 ML IVPB SCH (20:00)
[2019-05-11] MEDS ORDERED: DONEPEZIL HCL10 M2 ORAL (20:05)
--- NOTE | 2019-05-11 21:30 | NUR ---
NURSE NOTES: Patient discharged to [facility] accompanied by 2 washroom cleaner. Alonso, son, aware and is expecting and waiting for patient at the facility. All belongings sent with patient. No complaints of pain, VSS. ID band removed, no IV site. Remained free from injury.
--- NOTE | 2019-05-12 03:45 | Discharge Summary ---
DATE OF ADMISSION: 05/08/2019 DATE OF DISCHARGE: 05/11/2019 HOSPITAL COURSE: This is an 83-year-old female, who came for a complaint of weakness for few days prior to admission. The patient in the emergency room was found to have a urinary tract infection and was started on intravenous antibiotic with Rocephin 1 gram daily. The patient responded to treatment and culture result showed the patient is sensitive to Cipro, oral medication. The patient is going to be discharged on the Cipro 500 b.i.d. for 7 more days for treatment of the urinary tract infection. She also is noticed to have a high blood pressure in the hospital and was started on Norvasc 2.5 mg daily to control the blood pressure. The patient also has a history of dementia and because of progression of her dementia, we will increase the Aricept to 10 mg daily and have the patient follow up as outpatient. 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 DISCHARGE DIAGNOSES: 1. Urinary tract infection. 2. Dementia. 3. Hypertension. 4. Colonization of MRSA of the nares. DISCHARGE MEDICATIONS: 1. Amlodipine 2.5 mg p.o. daily. 2. Cipro 500 mg p.o. b.i.d. for seven days. 3. Aricept 10 mg one p.o. daily. 4. Acetaminophen 500 q.6 hours p.r.n. DISPOSITION: The patient will be discharged back to the [facility] and I will follow the patient in a few days following the discharge. Beatriz Cruz M.D. DR: HAILEY JOB#: [id number] CC:
== END 2019-05-11 21:27 | disposition home or self-care (01) | DRG 690 ==
LOC: EDBD 19:35 → EMR 20:19 → 4E 20:29 → EDBEDREQ 21:07 → 4E 05-09 00:17
DX: N39.0 Urinary tract infection, site not specified (principal); R45.1 Restlessness and agitation; G30.9 Alzheimer's disease, unspecified; F02.80 Dementia in other diseases classified elsewhere, unspecified severity, without behavioral disturbance, psychotic disturbance, mood disturbance, and anxiety; I10 Essential (primary) hypertension; Z22.322 Carrier or suspected carrier of Methicillin resistant Staphylococcus aureus; E86.0 Dehydration
CPT/HCPCS: 36415; 71045; 80048; 80053; 81003; 82550; 82553; 83605; 83690; 83880; 84484; 85025; 87040; 87081; 87086; 87181; 93005; 96365; 99285